=== PATIENT | female | born 1935 | race Caucasian/White ===

== ENCOUNTER 2022-04-17 09:59 | Emergency (ER) | payer OTHER ==
[~2022-04-17] VITALS: Ht 160 cm; Wt 52.1 kg
[2022-04-17] MEDS ORDERED: MECL25CH38 PO (10:14)
[2022-04-17 10:29] LABS: Basophils # (auto) 0 10 ^3/uL (0-0.2); Basophils % (auto) 0.4 % (0.0-2.0); Eosinophils # (auto) 0 10 ^3/uL (0-0.8); Eosinophils % (auto) 0.1 % (0.0-7.0); Hemoglobin 13.4 g/dL (12.2-16.2); Lymphocytes % (auto) 14.8 % (10.0-50.0); Mean Corpuscular Hemoglobin 30.7 pg (28.0-32.0); Mean Corpuscular Hgb Conc. 34.4 g/dL (32.0-36.0); Mean Corpuscular Volume 89.2 fL (80.0-100.0); Monocytes # (auto) 0.9 10 ^3/uL (0-1.3); Monocytes % (auto) 13.1 % (0.0-12.0); Neutrophils # (auto) 4.9 10 ^3/uL (1.6-8.6); Neutrophils % (auto) 71.6 % (37.0-80.0); Nucleated Red Blood Cells % 0.3 %; Red Blood Cells 4.38 10^6/uL (4.0-5.20); Red Cell Distribution Width 13.8 % (11.8-14.3); White Blood Cell 6.8 10^3/uL (4.4-10.8)
[2022-04-17 10:43] LABS: Calcium 9.7 mg/dL (8.5-10.1); Potassium 3.6 mmol/L (3.5-5.1)
[2022-04-17 10:45] LABS: BUN/Creatinine Ratio 18.5; Bilirubin, Total 1.3 mg/dL (0.2-1.0); Total Protein 7.6 g/dL (6.4-8.2)
[2022-04-17 10:51] LABS: Urine Bacteria MOD /hpf (None Seen); Urine Blood 3+ /uL (Negative); Urine Mucus FEW (None Seen); Urine Specific Gravity 1.015 (1.001-1.035); Urine WBC 386 /hpf (0 - 5)
[2022-04-17] MEDS ORDERED: NITR-87 PO (13:21)
[2022-04-17 13:22] VITALS: BP 125/72
== END 2022-04-17 13:34 | disposition home or self-care (01) ==
LOC: ER 09:59
DX: I10 Essential (primary) hypertension (principal); R42 Dizziness and giddiness; N39.0 Urinary tract infection, site not specified; Z79.899 Other long term (current) drug therapy
CPT/HCPCS: 36415; 70450; 74176; 80053; 81001; 83690; 85025; 93005

== ENCOUNTER 2022-04-26 08:34 | Emergency (ER) | payer OTHER ==
[~2022-04-26] VITALS: Ht 162.6 cm; Wt 51.6 kg
[~2022-04-26 08:34] MED LIST: MECL25CH38 PO; NITR-87 PO
[2022-04-26 09:28] LABS: Urine Bacteria NONE SEEN /hpf (None Seen); Urine Blood 2+ /uL (Negative); Urine Mucus FEW (None Seen); Urine Specific Gravity 1.015 (1.001-1.035); Urine WBC 3056 /hpf (0 - 5); Urine WBC Clumps PRESENT /hpf (None Seen)
[2022-04-26 09:39] VITALS: BP 133/73
[2022-04-26] MEDS ORDERED: CIPR-173 PO (09:44)
[2022-04-26] MEDS ORDERED: PHEN200T16 PO (09:44)
[2022-04-26] MEDS ORDERED: cefTRIAXone SOD 1,000 MG VL IM ONE (09:45)
[2022-04-26] MEDS ORDERED: PHENAZOPYRIDINE HCL 100 MG TAB PO ONE (09:45)
== END 2022-04-26 09:54 | disposition home or self-care (01) ==
LOC: ER 08:34
DX: N39.0 Urinary tract infection, site not specified (principal); I10 Essential (primary) hypertension; Z79.2 Long term (current) use of antibiotics; Z79.899 Other long term (current) drug therapy
CPT/HCPCS: 81001; 87086; 96372; 99283; J0696

== ENCOUNTER 2022-05-01 09:02 | Emergency (ER) | payer OTHER ==
[~2022-05-01] VITALS: Ht 162.6 cm; Wt 55.0 kg
[~2022-05-01 09:02] MED LIST changes: +CIPR-173 PO; +PHEN200T16 PO
[2022-05-01 09:46] VITALS: BP 116/64
[2022-05-01] MEDS ORDERED: ACET-1158 PO (09:56)
[2022-05-01] MEDS ORDERED: ACE3T PO (12:04)
[2022-05-01] MEDS ORDERED: HYDROcodone-ACET 5/325MG TAB PO ONE (12:30)
[2022-05-01] MEDS ORDERED: ONDANSETRON ODT 4 MG TAB PO ONE (12:30)
== END 2022-05-01 12:48 | disposition home or self-care (01) ==
LOC: ER 09:02
DX: S32.019A Unspecified fracture of first lumbar vertebra, initial encounter for closed fracture (principal); W01.0XXA Fall on same level from slipping, tripping and stumbling without subsequent striking against object, initial encounter; Y93.01 Activity, walking, marching and hiking; Y92.89 Other specified places as the place of occurrence of the external cause; Y99.8 Other external cause status
CPT/HCPCS: 72100; 72131; 72192; 93005; 99284; Q0162

== ENCOUNTER 2022-05-03 08:45 | Emergency (ER) | payer OTHER ==
[~2022-05-03] VITALS: Ht 157.5 cm; Wt 56.8 kg
[~2022-05-03 08:45] MED LIST changes: +ACE3T PO; +ACET-1158 PO
[2022-05-03 08:50] VITALS: BP 134/72
[2022-05-03] MEDS ORDERED: ACET-1080 PO (09:57)
== END 2022-05-03 10:23 | disposition home or self-care (01) ==
LOC: ER 08:45
DX: G89.29 Other chronic pain (principal); M54.50 Low back pain, unspecified; M51.37 Other intervertebral disc degeneration, lumbosacral region; I10 Essential (primary) hypertension; Z79.2 Long term (current) use of antibiotics; Z79.899 Other long term (current) drug therapy
CPT/HCPCS: 93005

== ENCOUNTER 2022-05-17 09:05 | Emergency (ER) | payer OTHER ==
[~2022-05-17] VITALS: Ht 167.6 cm; Wt 59.0 kg
[~2022-05-17 09:05] MED LIST changes: +ACET-1080 PO
[2022-05-17 11:25] VITALS: BP 119/65
[2022-05-17] MEDS ORDERED: ACET-1080 PO (11:34)
== END 2022-05-17 11:47 | disposition home or self-care (01) ==
LOC: ER 09:08
DX: M54.50 Low back pain, unspecified (principal); I10 Essential (primary) hypertension; Z76.0 Encounter for issue of repeat prescription; Z79.2 Long term (current) use of antibiotics; Z79.899 Other long term (current) drug therapy
CPT/HCPCS: 99291